=== PATIENT | female | born 1965 | race Caucasian/White ===

== ENCOUNTER 2018-06-10 14:17 | Emergency (ER) | payer MEDICARE, MEDICAID ==
[~2018-06-10] VITALS: Ht 160 cm; Wt 71.8 kg
[~2018-06-10 14:17] MED LIST: BUPR150T8 PO; DULO-31 PO; IBUP-1984 PO; LEVO125T69 PO; LEVO1IUD VG; MAGN296S29 PO; TRAZ-91 PO
[2018-06-10 14:27] VITALS: BP 114/74
[2018-06-10] MEDS ORDERED: diphenhydrAMINE 50 mg/ml inj IM ONE (15:35)
[2018-06-10] MEDS ORDERED: prednisone 10mg tablet PO SCH (15:35)
[2018-06-10] MEDS ORDERED: HYDR28CR14 TOP (15:39)
[2018-06-10] MEDS ORDERED: PRED20TA PO (15:39)
[2018-06-10] MEDS ORDERED: predniSONE 20 mg tablet PO ONE (15:40)
[2018-06-10] MEDS ORDERED: ketorolac tromethamine 15mg/ml inj. IM ONE (15:45)
== END 2018-06-10 16:05 | disposition home or self-care (01) ==
LOC: ER 14:17
DX: L50.9 Urticaria, unspecified (principal); R21 Rash and other nonspecific skin eruption; J45.909 Unspecified asthma, uncomplicated; F41.9 Anxiety disorder, unspecified; F32.9 Major depressive disorder, single episode, unspecified; E03.9 Hypothyroidism, unspecified; Z79.899 Other long term (current) drug therapy; Z88.2 Allergy status to sulfonamides
CPT/HCPCS: 96372; 99283; J1200; J1885; J7512

== ENCOUNTER 2022-08-05 05:31 | Day surgery (SDC) | payer MEDICARE, MEDICAID ==
[2022-07-29 13:42] LABS: BASOPHILS % (AUTO) 0.8 % (0-1); EOSINOPHILS # (AUTO) 0.2 X10'3 (0-0.9); EOSINOPHILS % (AUTO) 3.2 % (0-6); LYMPHOCYTES # (AUTO) 2.2 X10'3 (1.1-4.8); LYMPHOCYTES % (AUTO) 37.6 % (21-51); MEAN CORPUSCULAR HEMOGLOBIN 32.3 PG (27.0-31.0); MEAN CORPUSCULAR HGB CONC 34.4 g/dL (33.0-36.5); MEAN CORPUSCULAR VOLUME 93.9 FL (78-98); MEAN PLATELET VOLUME 6.3 FL (7.4-10.4); MONOCYTES # (AUTO) 0.6 X10'3 (0-0.9); MONOCYTES % (AUTO) 9.8 % (2-12); NEUTROPHILS # (AUTO) 2.8 X10'3 (1.8-7.7); NEUTROPHILS % (AUTO) 48.6 % (42-75); PRE OP HEMATOCRIT 40.1 % (35.0-45.0); PRE OP HEMOGLOBIN 13.8 g/dL (12.0-16.0); PRE OP PLATELET COUNT 234 X10'3 (140-440); RED BLOOD COUNT 4.28 X10'6 (4.20-5.60); RED CELL DISTRIBUTION WIDTH 14.1 % (11.5-14.5)
[2022-07-29 14:05] LABS: ALBUMIN 3.3 G/DL (3.4-5.0); ALKALINE PHOSPHATASE 81 IU/L (46-116); BLOOD UREA NITROGEN 14 MG/DL (7-18); BUN/CREATININE RATIO 16.3 (10.0-20.0); CALCIUM 8.4 MG/DL (8.5-10.1); CHLORIDE 105 MMOL/L (99-107); CREATININE 0.86 MG/DL (0.40-0.90); PRE OP ALT 29 U/L (30-65); PRE OP ANION GAP 7 (8-16); PRE OP AST 16 U/L (10-37); PRE OP BILIRUB, TOTAL 0.2 MG/DL (0.0-1.0); PRE OP GLUCOSE 91 MG/DL (70-104); PRE OP POTASSIUM 3.9 MMOL/L (3.4-5.1); PRE OP SODIUM 140 MMOL/L (135-145); TOTAL CARBON DIOXIDE 28.3 MMOL/L (24-32); TOTAL PROTEIN 6.7 G/DL (6.4-8.2); eGFR 69 ML/MIN
[~2022-08-05] VITALS: Ht 160 cm; Wt 65.8 kg
[2022-08-05] VITALS (12 sets, daily range): BP systolic 106–149; BP diastolic 70–81
[~2022-08-05 05:31] MED LIST changes: +ASCO500C18 PO; +BUPR300T53 PO; +CHOL500050 PO; +DEXL60CA3 PO; +HYDR-3965 PO; -IBUP-1984 PO; -LEVO1IUD VG; +LIONS MANE PO; -MAGN296S29 PO; +MULT-1085 PO; +OMEG10006 PO; +RED600TA PO; +TRAZ-256 PO; +[UNRECOGNIZED DRUG - CODE] PO; +[UNRECOGNIZED DRUG - OTHER] PO; +cefazolin 2gm/D5W 100mL 100 ML IV ONE; +famotidine 20mg tablet PO ONE; +ringers solution, lacted 1,000 ML IV SCH
[2022-08-05] MEDS ORDERED: TRAZ150T78 PO (06:04)
[2022-08-05] MEDS ORDERED: BUPIVAcaine/PF 2.5 mg/ml (0.25%) 30ml vial ONE (06:38)
[2022-08-05] MEDS ORDERED: fentaNYL/PF 50MCG/1 ML 2ML syringe ONE (07:12)
[2022-08-05] MEDS ORDERED: midazolam 1 mg/ML 2ml injection ONE (07:12)
[2022-08-05] MEDS ORDERED: sevoflurane 250ml liquid IH ONE (07:13)
[2022-08-05] MEDS ORDERED: ondansetron/PF 4mg/2ml inj ONE (07:14)
[2022-08-05] MEDS ORDERED: propofol inj 20 ML IV ONE (07:14)
[2022-08-05] MEDS ORDERED: dexamethasone sod phosphate 4mg/ml inj. ONE (07:14)
[2022-08-05] MEDS ORDERED: LIDOcaine 2% (20mg/ml) 5ml vial ONE (07:14)
[2022-08-05] MEDS ORDERED: ROPIVAcaine 0.5% (5mg/ml) 30ml vial ONE (07:14)
[2022-08-05] MEDS ORDERED: acetaminophen 1,000mg/100ml IV 100 ML IV ONE (07:53)
[2022-08-05] MEDS ORDERED: acetaminophen 1,000mg/100ml IV 0 ML IV ONE (07:53)
[2022-08-05] MEDS ORDERED: ringers solution, lacted 1,000 ML IV SCH (08:15)
[2022-08-05] MEDS ORDERED: ROPIVAcaine 0.2% (10 MG/5 ML) BOLUS INJECTION INTERSCALE PRN (08:15)
[2022-08-05] MEDS ORDERED: ondansetron/PF 4mg/2ml inj IV PRN (08:15)
[2022-08-05] MEDS ORDERED: morphine 4 MG/ML inj SYRINge IV PRN (08:15)
[2022-08-05] MEDS ORDERED: ROPIVAcaine 0.2%/PF PUMP/bolus 545 ML INTERSCALE SCH (08:15)
[2022-08-05] MEDS ORDERED: hydrALAZINE 20mg/ml inj. IV PRN (08:15)
[2022-08-05] MEDS ORDERED: fentaNYL/PF 50MCG/1 ML 2ML syringe IV PRN ×2 (08:15)
[2022-08-05] MEDS ORDERED: labetalol 20mg/4ml (5mg/ml) syringe IV PRN (08:15)
[2022-08-05] MEDS ORDERED: morphine 2 MG/ML inj. syringe IV PRN (08:15)
--- NOTE | 2022-08-05 08:43 | NUR ---
Received from OR via , accompanied by Anesthesiologist JESSICA AND OR NURSE and report given by Anesthesiolgist. PT IS DROWSY YET ABLE TO RESPOND TO VERBAL STIMULI. PT DENIES PAIN OR DISCOMFORT. ISLAND DRESSING WITH SOME DRAINAGE TO RT SHOULDER. ONQ CATH TO RT SIDE. VSS Addendum: 08/05/22 at 1053 by Reina Pizarro RN Amended: Links added.
[2022-08-05] MEDS ORDERED: HYDROcodone/acetaminophen 10/325mg tab PO PRN (08:50)
--- NOTE | 2022-08-05 10:43 | NUR ---
ABLE TO SAFELY AMBULATE AND TRANSFER SELF. IV TAKEN OUT WITHOUT ANY COMPLICATIONS. ALL DISCHARGE INSTRUCTIONS COVERED WITH PATIENT AND ALL QUESTIONS ANSWERED. PATIENT TAKEN OUT VIA WHEELCHAIR TO PERSONAL VEHICLE WHERE FAMILY/FRIEND DROVE PATIENT HOME. Addendum: 08/05/22 at 1053 by Reina Pizarro RN Amended: Links added.
== END 2022-08-05 10:43 | disposition home or self-care (01) ==
LOC: PAS 05:31
PROVIDERS: ATTEND Orthopaedic Surgery
DX: M19.011 Primary osteoarthritis, right shoulder (principal); M75.41 Impingement syndrome of right shoulder; M75.51 Bursitis of right shoulder; M65.811 Other synovitis and tenosynovitis, right shoulder; S43.431A Superior glenoid labrum lesion of right shoulder, initial encounter; M81.0 Age-related osteoporosis without current pathological fracture; M19.041 Primary osteoarthritis, right hand; F41.9 Anxiety disorder, unspecified; F32.A Depression, unspecified; E03.9 Hypothyroidism, unspecified; K21.9 Gastro-esophageal reflux disease without esophagitis; G89.18 Other acute postprocedural pain; Z79.899 Other long term (current) drug therapy; Z88.2 Allergy status to sulfonamides; Z98.890 Other specified postprocedural states; X58.XXXA Exposure to other specified factors, initial encounter; Y93.89 Activity, other specified; Y92.89 Other specified places as the place of occurrence of the external cause; Y99.8 Other external cause status
CPT/HCPCS: 29823; 29826; 36415; 64416; 80053; 82948; 85025; 93005; J0131; J0690; J1100; J2250; J2405; J2704; J2795; J3010; J3490; J7120; Z7506; Z7508; Z7512; A4565; A4618; A6449; A7000

== ENCOUNTER 2024-03-08 09:48 | Outpatient (CLI) | payer MEDICARE, MEDICAID ==
[~2024-03-08 09:48] MED LIST changes: -TRAZ-256 PO; -TRAZ-91 PO; +TRAZ150T78 PO; -cefazolin 2gm/D5W 100mL 100 ML IV ONE; -famotidine 20mg tablet PO ONE; -ringers solution, lacted 1,000 ML IV SCH
== END 2024-03-08 23:59 | disposition home or self-care (01) ==
LOC: RAD 09:48
PROVIDERS: ATTEND Orthopaedic Surgery
DX: M75.112 Incomplete rotator cuff tear or rupture of left shoulder, not specified as traumatic (principal); M19.012 Primary osteoarthritis, left shoulder; M19.011 Primary osteoarthritis, right shoulder; M25.711 Osteophyte, right shoulder; M25.511 Pain in right shoulder
CPT/HCPCS: 73200